=== PATIENT | female | born 1965 | race Caucasian/White ===

== ENCOUNTER → 2017-01-19 | Outpatient (CLI) | payer BC ==
[2013-11-26 11:13] VITALS: BP 122/76
--- NOTE | 2017-01-19 16:41 | MG ---
Examination: Bilateral screening mammogram. Clinical history: Routine screening. Technique: Digital CC and MLO views of both breasts were obtained. Computer aided detection analysis was performed and used during the interpretation. Comparison: 01/04/2016. Findings: The breasts are composed of scattered fibroglandular densities. Benign-appearing calcifications are noted in the breasts bilaterally. A skin mole is present overlying the left breast. No suspicious mass, area of architectural distortion or suspicious cluster of microcalcifications is noted. Impression: 1. No mammographic evidence of malignancy. BI-RADS category 2-benign findings. Recommend routine annual screening mammogram. Diagnostic CAD was utilized and reviewed. * 0 (ZERO) - ASSESSMENT INCOMPLETE; ADDITIONAL IMAGING IS NEEDED. * 0C - ASSESSMENT INCOMPLETE, NEEDS ADDITIONAL IMAGING EVALUATION AND/OR PRIOR MAMMOGRAMS FOR COMPAR JENNIFER. * 1/1 (ONE) - NEGATIVE. * 2/II (TWO) - BENIGN FINDINGS. * 3/III (THREE) - PROBABLY BENIGN FINDING; SHORT INTERVAL FOLLOW-UP SUGGESTED. * 4/IV (FOUR) - SUSPICIOUS ABNORMALITY; BIOPSY SHOULD BE CONSIDERED. * 5/V - HIGHLY SUSPICIOUS OF MALIGNANCY; BIOPSY SHOULD BE PERFORMED. * 6/IV - KNOWN BIOPSY PROVEN MALIGNANCY-APPROPRIATE ACTION SHOULD BE TAKEN. A NEGATIVE X-RAY REPORT SHOULD NOT DELAY BIOPSY IF A DOMINANT OR CLINICALLY SUSPICIOUS MASS IS PRESENT; 4 TO 8 PERCENT OF CANCERS ARE NOT IDENTIFIED BY X-RAY. A NEGATIVE REPORT MAY REINFORCE THE CLINICAL IMPRESSION. ADENOSIS AND DENSE BREASTS MAY OBSCURE AN UNDERLYING NEOPLASM. Reported By:
== END ==
LOC: RAD 09:56
PROVIDERS: ATTEND Obstetrics & Gynecology Obstetrics
DX: Z12.31 Encounter for screening mammogram for malignant neoplasm of breast (principal)
CPT/HCPCS: 77067

== ENCOUNTER → 2017-06-07 | Outpatient (CLI) | payer BC ==
[2013-11-26 11:13] VITALS: BP 122/76
[2017-06-07 10:22] LABS: CREATININE 0.88 mg/dL (0.55-1.02)
--- NOTE | 2017-06-08 12:39 | CT ---
CT NECK WITH IV CONTRAST CLINICAL INDICATION: Mass head and neck. Laterality in location not specified by ordering provider. TECHNIQUE: Multiple-row detector helical CT examination of the neck with IV contrast per standard de partmental protocol.Dose reduction techniques including Automated Exposure Control (AEC) and adjustme nt of mA and kV were utlized. COMPARISON: None. FINDINGS: The aerodigestive structures are within normal limits. Large amount of debris within the vallecula b est seen on series 7, image 77 and series 4, image 79. No definite internal enhancement. No pathologically enlarged, necrotic, or otherwise abnormal lymph nodes. Calcified subcutaneous nodu le on the right neck on series 4 image posteriorly. The parotid and submandibular glands appear within normal limits. The thyroid gland appears atrophic. Evaluation of the visualized portions of brain parenchyma and orbits demonstrates no abnormality. The visualized paranasal sinuses are predominantly clear. The tympanomastoid cavities are unopacified. T here is normal intravascular enhancement. Limited evaluation of the lung apices demonstrates no abnormality. The visualized osseous structures are within normal limits. Following administration of intravenous contrast material, there is no abnormal enhancement. IMPRESSION: 1. Nonenhancing debris within the vallecula likely represents ingested material. Correlate with direc t inspection. 2. No definite evidence of neck mass. Given that there was no laterality or location specified, canno t provide further pertinent negatives at this time. Reported By:
== END | disposition home or self-care (01) ==
LOC: RAD 09:29
DX: D37.05 Neoplasm of uncertain behavior of pharynx (principal); J35.2 Hypertrophy of adenoids; R22.0 Localized swelling, mass and lump, head; R22.1 Localized swelling, mass and lump, neck
CPT/HCPCS: 36415; 70491; 82565; 84520; A4222